=== PATIENT | female | born 1970 | race Caucasian/White ===

== ENCOUNTER 2018-07-14 09:57 | Emergency (ER) | payer OTHER ==
[~2018-07-14] VITALS: Ht 170.2 cm; Wt 104.3 kg
[2018-07-14] MEDS ORDERED: NORCO 5-325 TA1 EACH PO (11:42)
[2018-07-14] MEDS ORDERED: NAPROSYN500 MG PO (11:42)
[2018-07-14 12:06] VITALS: BP 174/98
== END 2018-07-14 12:07 | disposition home or self-care (01) ==
LOC: M.ERS 09:57
DX: M25.512 Pain in left shoulder (principal); M25.522 Pain in left elbow; F32.9 Major depressive disorder, single episode, unspecified